=== PATIENT | female | born 1970 | race Native Hawaiian/Other Pacific Islander ===

== ENCOUNTER 2018-04-05 08:31 | Outpatient (CLI) | payer OTHER ==
[2018-04-05 09:12] LABS: PLATELET COUNT 249 K/uL (152-353)
[2018-04-05 09:33] LABS: POTASSIUM 4.3 mmol/L (3.6-5.2)
== END 2018-04-05 19:37 | disposition home or self-care (01) ==
LOC: LABW 08:31
PROVIDERS: Family Medicine
DX: E03.9 Hypothyroidism, unspecified (principal); I10 Essential (primary) hypertension; G89.4 Chronic pain syndrome; Z83.3 Family history of diabetes mellitus; K21.9 Gastro-esophageal reflux disease without esophagitis; E55.9 Vitamin D deficiency, unspecified
CPT/HCPCS: 36415; 80053; 80061; 81000; 82306; 83036; 83735; 84439; 84443; 84550; 85027